=== PATIENT | female | born 1950 | race African-American/Black ===

== ENCOUNTER → 2022-06-19 10:33 | Outpatient (BNVA) | payer OTHER, SELFPAY | PROVIDERS: PCP Internal Medicine; Visit Provider Student in an Organized Health Care Education/Training Program | DX: Z13.89 Encounter for screening for other disorder (principal) ==

== ENCOUNTER 2023-01-07 09:24 | Outpatient (AMB) | payer OTHER, SELFPAY ==
[2023-01-07 09:27] VITALS: BP 152/82; PULSE 80
--- NOTE | 2023-01-07 09:27 | A.OFFVIS_ITS ---
Intake Vital Signs 01/07/23 09:27 Height 5 ft 4 in Weight 174 lb 9.698 oz BMI 30.0 BP 152/82 H Blood Pressure Location Rt brachial Position Sitting Pulse 80 Pulse Source Pulse Oximeter Intake Visit Reasons: FMS Intake Note: Pt presents today for follow up on Fibromyalgia. Emergency Dispatcher Required: No Accompanied by: Self / Same As Patient Allergies codeine Adverse Reaction (Unknown, Verified 01/07/23 09:33) Unknown Penicillins Adverse Reaction (Unknown, Verified 01/07/23 09:33) Unknown Medication List - Last Reconciled 01/07/23 by Trell Gunter MD cholecalciferol (vitamin D3) (Vitamin D3) 50 mcg PO DAILY cyclobenzaprine 10 mg PO TID dicyclomine 20 mg PO DAILY famotidine 40 mg PO DAILY hydrochlorothiazide 12.5 mg PO DAILY hydrocodone-acetaminophen 10-325 mg 1 tab PO QID PRN lidocaine 5% topical metoprolol tartrate 12.5 mg PO DAILY nifedipine ER 30 mg PO DAILY nystatin 0.5 mL PO QID PRN omeprazole 20 mg PO BID pravastatin 80 mg PO DAILY silver sulfadiazine 1% appl topical DAILY umeclidinium-vilanterol 62.5-25 mcg/actuation (Anoro Ellipta) 1 ea inhalation DAILY HPI HPI Comments History of Present Illness Details 72-year-old female with fibromyalgia ret urns for follow-up. Since last visit patient has been walking almost daily about 10 minutes around her house and in her yard. She also started therapy sessions. She did 2 or 3 sessions but has not done any sessions recently. Her symptoms are essentially the same. Initial history: This is a 72-year-old female who presents for evaluation of diffuse pain. Patient used to see Dr. Bradley coates in 2014. She has deg enerative arthritis as well as fibromyalgia. For her back pain patient uses hydrocodone and sometimes uses lidocaine patches and lidocaine cream. She was offered cortisone injections for her back and patient was not interested in them. Over the last few months she has been having worsening generalized pain as well as fatigue. She has significant fatigue after attending social functions. Patient takes multiple medicines for sleep and she is able to fall asleep relatively rapidly but she does not wake up refreshed. She denies any swollen joints. She states that recently her son has been having some problems and he moved back in with her. [facility] Medical History Depression Generalized osteoarthritis of multiple sites Fibromyalgia IBS (irritable bowel syndrome) Hypothyroidism GERD (gastroesophageal reflux disease) Hyperlipidemia Hypertension Chronic midline low back pain without sciatica Surgical History Hx of arthroscopic knee surgery History of total right knee replacement (TKR) Hx of hernia repair Hx of hysterectomy Hx of colonoscopy Hx of section History of esophagogastroduodenoscopy (EGD) Family History Mother Heart disease Hypertension Arthritis Father Diabetes Social History Alcohol intake: current Alcohol intake frequency: holidays/special occasions only Alcohol type: wine Patient Tobacco Use Status: Former Tobacco user Quit Date: 11/13/2020 Current occupational status: retired 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 Review of Systems Const Reports fatigue Musc Reports back pain, Reports myalgias and Reports arthralgias Psych Reports anxiety and Reports depression Endo Reports fatigue Physical Exam Vital Signs: Last Vital Signs Pulse 80 01/07/23 09:27 BP 152/82 H 01/07/23 09:27 BMI result Body Mass Index 30.0 Const General: cooperative, healthy appearing and comfortable Nutritional Appearance: obese Orientation/consciousness: patient oriented x3 Limitations: no limitations HEENT Head: Yes normocephalic and Yes atraumatic Resp Effort & Inspection: normal respiratory effort and able to speak in complete sentences Auscultation: clear to auscultation bilaterally Cardio Rate: regular rate Rhythm: regular rhythm Heart sounds: S1 normal heart sound present GI Inspection: No distended Palpation (GI): Soft to palpation and nontender Skin Other: hypopigment spots on her right wrist Neuro General: patient oriented x3 Extrem Other: No active synovitis Few fibromyalgia tender points. Bilateral paraspinal tenderness in the lumbar area Results Reviewed Results Reviewed: Labs 11/2021? CBC unremarkable? CMP unremarkable except for creatinine 1 highly elevated at 1.14 MALIK/anti dsDNA negative Labs 07/2021? ESR 10? CRP 0.63 (<0.5) Left shoulder x-ray 05/2022? Impression degenerative changes in the AC joint Assessment & Plan Assessment & Plan (1) Fibromyalgia: Code(s): M79.7 - Fibromyalgia Plan: This is a 72-year-old female with generalized osteoarthritis and fibromyalgia who presents for evaluation of diffuse pain. Symptoms rather consistent with fibromyalgia and degenerative osteoarthritis of her spine. Patient takes hydrocodone and uses lidocaine patches and lidocaine cream for her pain. She refused cortisone injections. Since last visit patient has been walking almost daily for 10 minutes, she did a couple of therapy sessions which she felt were useful. She feels about the same overall pain I advised patient to continue with her exercise routine, can consider adding aqua therapy or light weight exercises at home. I suggested patient follows up regularly with therapy sessions. Follow-up as needed Plan I spent 15 minutes reviewing patient's chart, evaluating patient, counseling patient and documenting in the chart Coding Level of Care Code Est Pt Level 3 (56226) Diagnoses Fibromyalgia M79.7
== END 2023-01-07 09:44 | disposition home or self-care (01) ==
PROVIDERS: PCP Internal Medicine; Visit Provider Student in an Organized Health Care Education/Training Program
DX: M79.7 Fibromyalgia (principal)
CPT/HCPCS: 99213

== ENCOUNTER → 2023-01-07 09:24 | Outpatient (BNVA) | payer OTHER, SELFPAY | PROVIDERS: PCP Internal Medicine; Visit Provider Student in an Organized Health Care Education/Training Program ==